=== PATIENT | female | born 1965 | race African-American/Black ===

== ENCOUNTER 2020-11-19 20:59 | Emergency (ER) | payer OTHER ==
[~2020-11-19] VITALS: Ht 162.6 cm; Wt 167.8 kg
[~2020-11-19 20:59] MED LIST: BENADRYL25 MG PO; DIOVAN320 MG PO; DOXYCYCLINE 10100 MG PO; EPIPEN0.3 MG/0.3 IM; MEDROLDOSEPACK PO; METFORMIN HCL500 M2 PO; NORCO 5-325 TA1 EACH PO; PEPCID20 MG PO; PREDNISONE 5 MG5 M1 PO
[2020-11-19] MEDS ORDERED: BENADRYL25 MG PO (22:22)
[2020-11-19] MEDS ORDERED: ACID CONTROLLER20 MG PO (22:22)
[2020-11-19] MEDS ORDERED: EPIPEN JR0.15 MG/01 IM (22:40)
[2020-11-19 22:56] VITALS: BP 130/83
== END 2020-11-19 22:57 | disposition home or self-care (01) ==
LOC: ER 20:59
DX: T78.1XXA Other adverse food reactions, not elsewhere classified, initial encounter (principal); R07.0 Pain in throat; R22.0 Localized swelling, mass and lump, head; I10 Essential (primary) hypertension; E11.9 Type 2 diabetes mellitus without complications; Z98.890 Other specified postprocedural states; Z79.01 Long term (current) use of anticoagulants; Z79.899 Other long term (current) drug therapy; Z91.018 Allergy to other foods; X58.XXXA Exposure to other specified factors, initial encounter

== ENCOUNTER 2021-04-22 02:35 | Emergency (ER) | payer OTHER ==
[~2021-04-22] VITALS: Ht 162.6 cm; Wt 158.8 kg
--- NOTE | ~2021-04-22 | EMS ---
[facility] [address] [place] [address] EMS Patient Care Report Name: DAGOBERTO VASQUEZ Room #: REG GRACIA Anderson#: [id number] Admission: 04/22/21 Attend Phys: Discharge: Date of : 67 Report #: [id number] THIS REPORT FOR: //name// Report Transmitted: 04/22/2021 02:43 EMS Care Summary [place], [place]/[facility] Incident [id number] @ 04/22/2021 01:58 Incident Location [address] [place] [address] Patient DAGOBERTO FRYE Female, 55 Years 1965 Patient Address Patient History Diabetes,Hypertension (HTN), Patient Allergies [place] allergy, Patient Medications Epinephrine Auto-injector, Valsartan, Cyclobenzaprine, Metformin, Chief Complaint ALLERGY Disposition Transported No Lights/[place] Dispatch Reason Allergic Reaction/Stings Transported To [facility] Narrative RESPONDED TO ALLERGIES AT HOME. 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 PT IS ALERT AND ORIENTED BUT DOES NOT APPEAR IN IMMEDIAE DISTRESS. PT HAS HIVES NOTED TO HER ARMS. PT IS VERY JITTERY AND SHAKEY BUT ABLE TO WALK ON HER OWN TO COT AND SEATBELTS ON. PT VITALS AND 3 LEAD OBTAINED. IV NOT ATTEMPTED DUE TO MINIMAL ACCESS. PT HAD HER SON AT HOME AND DUE TO HIM BEING UNDER AGE AND [facility] [address] [place] [address] EMS Patient Care Report Name: DAGOBERTO VASQUEZ Room #: REG Monica#: [id number] Admission: 04/22/21 Attend Phys: Discharge: Date of : 67 Report #: [id number] HAVING SEVERE AUTISM SHE NEEDED HIM TO BE TRANSPORTED WITH EMS. PT SON SAT UP FRONT AND SEATBELTS ON. PT TRANSPORTED WITH NO CHANGES TO [facility]. PT SCOOTED TO BED AND HANDRAILS UP. REPORT GIVEN TO NURSE. Initial Vitals @02:26P: 101,SpO2: 98, @02:19P: 100,CO: 6,SpO2: 98, @02:27P: 94,R: 16,BP: 138/82,GCS: 15,CO: 3,SpO2: 98,Revised Trauma: 12, @02:19P: 104,R: 18,BP: 145/79,Pain: 0/10,GCS: 15,SpO2: 100,Revised Trauma: 12, Assessments @02:12MENTAL:Time Oriented,Person Oriented,Event Oriented,Place Oriented,SKIN:HEENT:Head/Face: No Abnormalities,Neck/Airway: No Abnormalities,LUNG SOUNDS:General: No Abnormalities,ABDOMEN:General: No Abnormalities,PELVIS//GI:No Abnormalities,EXTREMITIES:Capillary Refill: Right Upper: < 2 Sec,Left Arm: No Abnormalities,Right Arm: No Abnormalities,Left Leg: No Abnormalities,Right Leg: No Abnormalities,PULSE:Radial: 2+ Normal,NEURO:No Abnormalities, Impression Allergic Reaction Procedures @02:203-Lead ECGResponse: UnchangedSucceeded@02:12ALS AssessmentResponse: UnchangedSucceeded Timeline 01:56,Call Received 01:56,Dispatch Notified 01:58,Dispatched 02:00,En Route 02:10,On Scene 02:12,At Patient 02:12,ALS Assessment,Response: UnchangedSucceeded, 02:19,BP: / M,PULSE: 100,RR: R,SPO2: 98 Ox,ETCO2: ,BG: ,PAIN: ,GCS: , 02:19,Depart Scene 02:19,BP: 145/79 M,PULSE: 104,RR: 18 R,SPO2: 100 Ox,ETCO2: ,BG: ,PAIN: 0,GCS: 15, 02:20,3-Lead ECG,Response: UnchangedSucceeded, 02:26,BP: / M,PULSE: 101,RR: R,SPO2: 98 Ox,ETCO2: ,BG: ,PAIN: ,GCS: , 02:27,BP: 138/82 M,PULSE: 94,RR: 16 R,SPO2: 98 Ox,ETCO2: ,BG: ,PAIN: ,GCS: 15, 02:31,At Destination 02:45,Call Closed Disclaimer [email or web address] Copyright 2020 [employer] [address] [address] EMS Patient Care Report Name: DAGOBERTO VASQUEZ Room #: REG Monica#: [id number] Admission: 04/22/21 Attend Phys: Discharge: Date of : 67 Report #: [id number] This EMS Care Summary contains data elements from the applicable legal record (which may be displayed differently). It is designed to provide pertinent information for the following purposes: continuity of care, clinical quality, and state data reporting. The complete legal record is available to ED staff and administrators of the receiving hospital in [facility]'s Patient Tracker. All data is provided "as is."
[~2021-04-22 02:35] MED LIST changes: +ACID CONTROLLER20 MG PO; +EPIPEN JR0.15 MG/01 IM
[2021-04-22] MEDS ORDERED: HYDROCHLOROTH12.5 M1 PO (03:12)
[2021-04-22] MEDS ORDERED: BENADRYL25 MG PO (04:44)
[2021-04-22] MEDS ORDERED: ALLEGRA ALLERG180 MG PO (04:44)
[2021-04-22] MEDS ORDERED: PREDNISONE 20 M20 MG PO (04:44)
[2021-04-22] MEDS ORDERED: EPIPEN 2-P0.3 MG/0.3 IM (04:44)
[2021-04-22 04:56] VITALS: BP 125/72
== END 2021-04-22 04:58 | disposition home or self-care (01) ==
LOC: ER 02:35
DX: T78.1XXA Other adverse food reactions, not elsewhere classified, initial encounter (principal); I10 Essential (primary) hypertension; L50.9 Urticaria, unspecified; E11.9 Type 2 diabetes mellitus without complications; Z91.018 Allergy to other foods; Z79.899 Other long term (current) drug therapy; Z98.890 Other specified postprocedural states

== ENCOUNTER 2021-04-22 08:38 | Emergency (ER) | payer OTHER ==
[~2021-04-22] VITALS: Ht 162.6 cm; Wt 162.4 kg
[~2021-04-22 08:38] MED LIST changes: +ALLEGRA ALLERG180 MG PO; +EPIPEN 2-P0.3 MG/0.3 IM; +HYDROCHLOROTH12.5 M1 PO; +PREDNISONE 20 M20 MG PO
[2021-04-22 12:15] VITALS: BP 115/70
== END 2021-04-22 12:15 | disposition home or self-care (01) ==
LOC: ER 08:38
DX: L50.8 Other urticaria (principal); T78.09XA Anaphylactic reaction due to other food products, initial encounter; I10 Essential (primary) hypertension; E11.9 Type 2 diabetes mellitus without complications; Z88.8 Allergy status to other drugs, medicaments and biological substances; Z79.899 Other long term (current) drug therapy; Z98.890 Other specified postprocedural states; Y92.89 Other specified places as the place of occurrence of the external cause